=== PATIENT | female | born 1980 | race Caucasian/White ===

== ENCOUNTER 2020-09-24 22:43 | Emergency (ER) | payer OTHER ==
[2020-09-25] MEDS ORDERED: DICLOFENAC SODI75 MG PO (01:08)
[2020-09-25] MEDS ORDERED: CYCLOBENZAPRINE10 MG PO (01:08)
== END 2020-09-25 01:42 | disposition home or self-care (01) ==
LOC: FER 22:43
DX: S70.02XA Contusion of left hip, initial encounter (principal); F17.210 Nicotine dependence, cigarettes, uncomplicated; X58.XXXA Exposure to other specified factors, initial encounter
CPT/HCPCS: 72170